=== PATIENT | female | born 1955 | race Caucasian/White ===

== ENCOUNTER 2017-09-20 04:55 | Outpatient (CLI) | payer BC | END 2017-09-20 23:59 | disposition home or self-care (01) | LOC: DIABETIC 04:55 | PROVIDERS: ATTEND Family Medicine | DX: E11.9 Type 2 diabetes mellitus without complications (principal) | CPT/HCPCS: G0108 ==

== ENCOUNTER 2017-12-20 05:00 | Outpatient (CLI) | payer BC | END 2017-12-20 23:59 | disposition home or self-care (01) | LOC: DIABETIC 05:00 | PROVIDERS: ATTEND Family Medicine | DX: E11.65 Type 2 diabetes mellitus with hyperglycemia (principal) | CPT/HCPCS: G0108 ==

== ENCOUNTER 2018-04-21 04:27 | Outpatient (CLI) | payer BC | END 2018-04-21 23:59 | disposition home or self-care (01) | LOC: DIABETIC 04:27 | PROVIDERS: ATTEND Family Medicine | DX: E11.65 Type 2 diabetes mellitus with hyperglycemia (principal); Z79.84 Long term (current) use of oral hypoglycemic drugs | CPT/HCPCS: G0108 ==

== ENCOUNTER 2018-08-23 00:48 | Outpatient (CLI) | payer BC | END 2018-08-23 23:59 | disposition home or self-care (01) | LOC: DIABETIC 00:48 | PROVIDERS: ATTEND Family Medicine | DX: E11.65 Type 2 diabetes mellitus with hyperglycemia (principal); Z79.84 Long term (current) use of oral hypoglycemic drugs | CPT/HCPCS: G0108 ==

== ENCOUNTER 2018-11-20 11:12 | Inpatient (IN) | payer BC ==
[~2018-11-20] VITALS: Ht 167.6 cm; Wt 62.7 kg
[2018-11-20 12:02] LABS: BASOPHILS % (AUTO) 0.7 % (0-1); EOSINOPHILS # (AUTO) 0.3 X10'3 (0-0.9); EOSINOPHILS % (AUTO) 4.9 % (0-6); HEMATOCRIT 41.2 % (35.0-45.0); HEMOGLOBIN 13.8 g/dl (12.0-16.0); LYMPHOCYTES # (AUTO) 1.5 X10'3 (1.1-4.8); LYMPHOCYTES % (AUTO) 26.1 % (21-51); MEAN CORPUSCULAR HEMOGLOBIN 29.3 PG (27.0-31.0); MEAN CORPUSCULAR HGB CONC 33.6 g/dL (33.0-36.5); MEAN CORPUSCULAR VOLUME 87.4 FL (78-98); MEAN PLATELET VOLUME 8.3 FL (7.4-10.4); MONOCYTES # (AUTO) 0.6 X10'3 (0-0.9); MONOCYTES % (AUTO) 9.8 % (2-12); NEUTROPHILS # (AUTO) 3.5 X10'3 (1.8-7.7); NEUTROPHILS % (AUTO) 58.5 % (42-75); PLATELET COUNT 320 X10'3 (140-440); RED BLOOD COUNT 4.72 X10'6 (4.20-5.60); RED CELL DISTRIBUTION WIDTH 13.3 % (11.5-14.5); WHITE BLOOD COUNT 5.9 X10'3 (4.5-11.0)
[2018-11-20 12:15] LABS: ALANINE AMINOTRANSFERASE 28 U/L (12-78); ALBUMIN 3.4 G/DL (3.4-5.0); ALKALINE PHOSPHATASE 93 IU/L (46-116); ANION GAP 5 (8-16); ASPARTATE AMINO TRANSFERASE 18 U/L (10-37); BILIRUBIN,TOTAL 0.3 MG/DL (0.1-1.0); BLOOD UREA NITROGEN 21 MG/DL (7-18); BUN/CREATININE RATIO 26.6 (6.6-38.0); CALCIUM 9.5 MG/DL (8.5-10.1); CHLORIDE 105 MMOL/L (99-107); CREATININE 0.79 MG/DL (0.40-0.90); GLUCOSE 118 MG/DL (70-104); POTASSIUM 3.2 MMOL/L (3.5-5.1); SODIUM 141 MMOL/L (135-145); TOTAL CARBON DIOXIDE 31.5 MMOL/L (24-32); TOTAL PROTEIN 6.9 G/DL (6.4-8.2); eGFR 73 ML/MIN
--- NOTE | 2018-11-20 12:15 | NUR ---
DR KLEIN MADE AWARE OF PATIENT'S STATUS, HR 150 AFIB WITH NO PREVIOUS CARDIAC HX. Addendum: 11/20/18 at 1544 by JUANITA UNSTABLE AFIB, HR 130'S-150'S.
[2018-11-20 12:19] LABS: PARTIAL THROMBOPLASTIN TIME 25 SECONDS (22-32)
[2018-11-20] MEDS ORDERED: diltiazem-D5W 125mg/125ml 125 ML IV PRN (12:26)
[2018-11-20] MEDS ORDERED: diltiazem 5mg/ml 5ml inj. IV ONE (12:30)
[2018-11-20] MEDS ORDERED: ATOR20TA66 PO (12:53)
[2018-11-20] MEDS ORDERED: ADAL40PE SUBCUT (12:53)
[2018-11-20] MEDS ORDERED: PRED1TAB PO (12:58)
[2018-11-20] MEDS ORDERED: LEVO100T PO (12:58)
[2018-11-20] MEDS ORDERED: MONT10TA24 PO (12:58)
[2018-11-20] MEDS ORDERED: GABA-532 PO ×2 (12:58)
[2018-11-20] MEDS ORDERED: FLO44IN IH (12:58)
[2018-11-20] MEDS ORDERED: METF-436 PO (13:00)
[2018-11-20] MEDS ORDERED: CETI-102 PO (13:00)
[2018-11-20] MEDS ORDERED: OMEP20CA10 PO (13:00)
[2018-11-20 13:41] LABS: MAGNESIUM 1.5 MG/DL (1.5-2.4)
--- NOTE | 2018-11-20 13:54 | NUR ---
OKAY TO EAT PER DR KLEIN. [facility]
[2018-11-20] MEDS ORDERED: mag hydrox/Alum hydrox/simeth 30ml oral suspension PO PRN (14:25)
[2018-11-20] MEDS ORDERED: insulin Lispro (HumaLOG) vial - multi-dose SQ SCH (14:25)
[2018-11-20] MEDS ORDERED: ondansetron/PF 4mg/2ml inj IV PRN (14:25)
[2018-11-20] MEDS ORDERED: magnesium 4gm in 100ml NS 100 ML IV PRN (14:25)
[2018-11-20] MEDS ORDERED: dextrose ORAL solution 15 GM/59 ML bottle PO PRN ×2 (14:25)
[2018-11-20] MEDS ORDERED: diphenhydrAMINE 25mg capsule PO PRN (14:25)
[2018-11-20] MEDS ORDERED: potassium Cl 20 mEq SR tablet PO PRN (14:25)
[2018-11-20] MEDS ORDERED: glucagon, human recombinant 1mg kit SUBCUT PRN (14:25)
[2018-11-20] MEDS ORDERED: bisacodyl 10mg suppository rectal RC PRN (14:25)
[2018-11-20] MEDS ORDERED: morphine 2 MG/ML inj. syringe IV PRN (14:25)
[2018-11-20] MEDS ORDERED: HYDROcodone/acetaminophen 5mg/325mg tablet PO PRN (14:25)
[2018-11-20] MEDS ORDERED: magnesium 2GM in 50ml NS 50 ML IV PRN (14:25)
[2018-11-20] MEDS: K and/or MAG REPLACEMENT MC SCH (14:25)
[2018-11-20] MEDS ORDERED: potassium Cl 40MEQ/NS 500ml 500 ML IV PRN ×2 (14:25)
[2018-11-20] MEDS ORDERED: magnesium hydroxide 30ml (MOM) UD suspension PO PRN (14:25)
[2018-11-20] MEDS ORDERED: dextrose 50%-water 50ml dispensing syringe IV PRN ×2 (14:25)
[2018-11-20] MEDS ORDERED: acetaminophen 325mg tablet PO PRN ×2 (14:25)
[2018-11-20] MEDS ORDERED: MESSAGE TO PHARMACY PO ONE (14:25)
[2018-11-20] MEDS ORDERED: HYDROcodone/acetaminophen 10/325mg tab PO PRN (14:25)
[2018-11-20] MEDS ORDERED: magnesium Cl slow-release 64mg tablet PO PRN (14:25)
[2018-11-20] MEDS ORDERED: iohexol 350MG/ML 100ml bottle IV ONE (14:48)
[2018-11-20 15:06] LABS: CLARITY,URINE CLEAR (Clear); COLOR,URINE STRAW (Yellow); GLUCOSE, URINE NEGATIVE (Neg); KETONES,URINE NEGATIVE (Neg); LEUKOCYTE ESTERASE ,URINE NEGATIVE (Neg); NITRITES, URINE NEGATIVE (Neg); OCCULT BLOOD,URINE NEGATIVE (Neg); PH,URINE 6.5 (4.8-8.0); PROTEIN,URINE NEGATIVE (Neg); UROBILINOGEN,URINE 0.2 E.U/dL (0.2-1.0)
[2018-11-20 15:08] LABS: UA COLLECTION TYPE CLN CATCH MIDSTREAM
[2018-11-20 15:11] LABS: URINE AMPHETAMINE SCREEN NEGATIVE (Neg); URINE BARBITUATE SCREEN NEGATIVE (Neg); URINE BENZODIAZEPINES SCREEN NEGATIVE (Neg); URINE CANNABINOID SCREEN NEGATIVE (Neg); URINE COCAINE SCREEN NEGATIVE (Neg); URINE METHADONE SCREEN NEGATIVE (Neg); URINE OPIATE SCREEN NEGATIVE (Neg); URINE PHENCYCLIDINE SCREEN NEGATIVE (Neg)
[2018-11-20 15:36] LABS: HEMOGLOBIN A1C 5.9 % (4.5-6.2)
[2018-11-20] MEDS: potassium Cl 20 mEq SR tablet PO PRN ×2 (15:40→22:01)
--- NOTE | 2018-11-20 15:41 | NUR ---
DR KAUR AT BEDSIDE, HR 88, CONVERTED TO STABLE AFIB ON CARDIAC MONTIOR, BP 137/55, SPO2 100 % ON ROOM AIR, PAIN 0/10 ON PAIN SCALE.
[2018-11-20] MEDS: MESSAGE TO NURSING PO NR (15:49)
--- NOTE | 2018-11-20 16:52 | NUR ---
phone call to dr Stark at this time regarding Patient converting to SR. Per MD order new EKG and cardizem drip changed to 5 ml/hr and hold if SBP <100, or HR <60.
--- NOTE | 2018-11-20 19:20 | NUR ---
Patient in room PCU 3023B. I have received report from Margaret RN in ED and had the opportunity to ask questions and assume patient care. Patient on 5 mg Cardizem drip. Patient arrived to floor on gurney and ambulated to bed. On mobile 63 with VS q1hr per protocol. Patient is A&O x4. Will continue to monitor closely
[2018-11-20 20:00] VITALS: BP_SYST 121; BP_SYST 130; BP_DIAS 63; BP_DIAS 71; BP_DIAS 75; BP_DIAS 77
[2018-11-20] MEDS: budesonide 0.5mg/2ml UD nebule IH SCH (20:06)
[2018-11-20] MEDS ORDERED: insulin glargine (Lantus) pen - multi-dose SQ SCH (21:00)
[2018-11-20] MEDS ORDERED: gabapentin 300mg capsule PO SCH (21:00)
[2018-11-20] MEDS: apixaban 5mg tablet PO SCH (21:34)
[2018-11-20] MEDS: normal saline 1000ml 1,000 ML IV SCH (21:43)
[2018-11-20 23:00] VITALS: BP 130/75
[2018-11-21] MEDS: potassium Cl 20 mEq SR tablet PO PRN (02:27)
[2018-11-21 03:00] VITALS: BP 116/66
[2018-11-21 05:16] LABS: BASOPHILS # (AUTO) 0.1 X10'3 (0-0.2); BASOPHILS % (AUTO) 0.7 % (0-1); EOSINOPHILS # (AUTO) 0.3 X10'3 (0-0.9); EOSINOPHILS % (AUTO) 2.7 % (0-6); HEMATOCRIT 38.1 % (35.0-45.0); HEMOGLOBIN 13.1 g/dl (12.0-16.0); LYMPHOCYTES # (AUTO) 1.9 X10'3 (1.1-4.8); LYMPHOCYTES % (AUTO) 20.4 % (21-51); MEAN CORPUSCULAR HEMOGLOBIN 29.9 PG (27.0-31.0); MEAN CORPUSCULAR HGB CONC 34.5 g/dL (33.0-36.5); MEAN CORPUSCULAR VOLUME 86.9 FL (78-98); MEAN PLATELET VOLUME 8.5 FL (7.4-10.4); MONOCYTES % (AUTO) 10.6 % (2-12); NEUTROPHILS % (AUTO) 65.6 % (42-75); PLATELET COUNT 298 X10'3 (140-440); RED BLOOD COUNT 4.38 X10'6 (4.20-5.60); RED CELL DISTRIBUTION WIDTH 13.4 % (11.5-14.5); WHITE BLOOD COUNT 9.2 X10'3 (4.5-11.0)
[2018-11-21] MEDS: normal saline 1000ml 1,000 ML IV SCH ×2 (05:22→10:22)
[2018-11-21 05:29] LABS: ALANINE AMINOTRANSFERASE 23 U/L (12-78); ALBUMIN 3.1 G/DL (3.4-5.0); ALBUMIN/GLOBULIN RATIO 0.9 (1.1-1.5); ALKALINE PHOSPHATASE 80 IU/L (46-116); ANION GAP 5 (8-16); ASPARTATE AMINO TRANSFERASE 11 U/L (10-37); BILIRUBIN,TOTAL 0.3 MG/DL (0.1-1.0); BLOOD UREA NITROGEN 21 MG/DL (7-18); BUN/CREATININE RATIO 30.9 (6.6-38.0); CALCIUM 9.5 MG/DL (8.5-10.1); CHLORIDE 107 MMOL/L (99-107); CHOL/HDL RATIO 2.9 (0.00-4.99); CHOLESTEROL 158 MG/DL (0-200); CREATININE 0.68 MG/DL (0.40-0.90); GLUCOSE 105 MG/DL (70-104); HDL CHOLESTEROL 54 MG/DL (35-60); LDL CHOLESTEROL 95 MG/DL (50-100); MAGNESIUM 1.7 MG/DL (1.5-2.4); PHOSPHORUS 4.2 MG/DL (2.3-4.5); POTASSIUM 4.1 MMOL/L (3.5-5.1); SODIUM 140 MMOL/L (135-145); TOTAL CARBON DIOXIDE 27.6 MMOL/L (24-32); TOTAL PROTEIN 6.4 G/DL (6.4-8.2); TRIGLYCERIDES 76 MG/DL (20-135); eGFR 87 ML/MIN
[2018-11-21 06:00] VITALS: BP 111/69
--- NOTE | 2018-11-21 06:12 | NUR ---
[place] documentation: I have reviewed and agree with all interventions, assessments performed and documented by Binu VERDIN. [place] Medication Administration: For this medication-pass time frame, all medication were reviewed, dispensed, administered and documented per hospital policy by Binu VERDIN.
--- NOTE | 2018-11-21 06:15 | NUR ---
Problems reprioritized. Patient report given, questions answered & plan of care reviewed with LAMBERT Manzo and LAMBERT Greer.
--- NOTE | 2018-11-21 06:20 | NUR ---
Patient in room PCU 3023. I have received report from Saadia little and had the opportunity to ask questions and assume patient care.
--- NOTE | 2018-11-21 07:17 | NUR ---
patient has a migraine paged Dr. Stark "RE: Dandre Cyr in 1039I. pt c/o bad migraine, says she takes 100mg of Imitrex for this. refusing [place], can we place that order? call me chip. thank you, Anais [facility] [phone]"
[2018-11-21] MEDS ORDERED: SUMAtriptan 25 MG tablet PO PRN (07:20)
[2018-11-21] MEDS: apixaban 5mg tablet PO SCH (07:53)
[2018-11-21] MEDS: gabapentin 300mg capsule PO SCH ×2 (07:53→12:00)
[2018-11-21] MEDS ORDERED: atorvastatin 20mg tablet PO SCH (08:00)
[2018-11-21] MEDS ORDERED: montelukast 10mg tablet PO SCH (08:00)
[2018-11-21] MEDS ORDERED: pantoprazole 40mg Tablet.DR PO SCH (08:00)
[2018-11-21] MEDS ORDERED: predniSONE 1 mg tablet PO SCH (08:00)
[2018-11-21] MEDS: K and/or MAG REPLACEMENT MC SCH (08:00)
--- NOTE | 2018-11-21 08:21 | NUR ---
Asked MD about Cardizem Drip Paged Dr. Stark- "Re: Dandre Cyr in 7408B. Patient is in Sinus Rhythm, can we DC Cardizem drip/start PO medication? also has orders for NS @100 pt tolerating PO. Thank you, Anais [facility] [phone] "
[2018-11-21] MEDS: budesonide 0.5mg/2ml UD nebule IH SCH (08:29)
[2018-11-21] MEDS ORDERED: diltiazem CD 180mg cap (once-daily) PO SCH (08:50)
[2018-11-21] MEDS: MESSAGE TO NURSING PO NR (09:57)
[2018-11-21 11:00] VITALS: BP 117/64
[2018-11-21] MEDS ORDERED: DILT180C66 PO (13:27)
[2018-11-21] MEDS ORDERED: LEVO25TA7 PO (13:27)
[2018-11-21] MEDS ORDERED: APIX5TAB3 PO (13:27)
--- NOTE | 2018-11-21 16:12 | NUR ---
PROVIDED PATIENT WITH DISCHARGE INSTRUCTIONS WELL NEW PRESCRIPTION INFORMATION. PATIENT AWAITING DELIVERY OF NEW PRESCRIPTIONS FROM [facility] BEDSIDE. IV REMOVED, CATHETER INTACT, WITH MINIMAL BLEEDING. CLEAN GAUZE APPLIED AND SECURED WITH TAPE. PATIENT IN SINUS RHYTHM, VITAL SIGNS STABLE. PATIENT VERBALIZES UNDERSTANDING OF IMPORTANCE OF FOLLOWING UP WITH PRIMARY CARE DOCTOR WELL RAILROAD CONSTRUCTION DIRECTOR. PATIENT RECOMMENDED TO REPEAT CHEST CT. DISCONNECTED FROM BEDSIDE MONITOR. PATIENT AWAITING RIDE FROM FAMILY TO GO HOME VIA PRIVATE VEHICLE.
[2018-11-23] MEDS ORDERED: ADALIMUMAB 40 MG/0.8 ML SUBCUT SCH (08:00)
== END 2018-11-21 17:26 | disposition home or self-care (01) | DRG 310 ==
LOC: ER 11:12 → PCU 3S 14:26 → CMPBEDREQ 20:38
PROVIDERS: ADMIT Family Medicine; ATTEND Family Medicine
DX: I48.91 Unspecified atrial fibrillation (principal); E11.9 Type 2 diabetes mellitus without complications; E03.9 Hypothyroidism, unspecified; E78.5 Hyperlipidemia, unspecified; E87.6 Hypokalemia; J30.2 Other seasonal allergic rhinitis; E04.9 Nontoxic goiter, unspecified; M06.9 Rheumatoid arthritis, unspecified; K21.9 Gastro-esophageal reflux disease without esophagitis; Z79.01 Long term (current) use of anticoagulants; Z88.0 Allergy status to penicillin; Z88.8 Allergy status to other drugs, medicaments and biological substances; Z79.84 Long term (current) use of oral hypoglycemic drugs; Z79.890 Hormone replacement therapy; Z79.899 Other long term (current) drug therapy; Z82.49 Family history of ischemic heart disease and other diseases of the circulatory system; Z85.3 Personal history of malignant neoplasm of breast
CPT/HCPCS: 36415; 71045; 71275; 80053; 80061; 80305; 81003; 82948; 83036; 83735; 84100; 84443; 84484; 85025; 85610; 85730; 87070; 93005; 93306; 94640; 94760; 96374; 99285; G0378; J1815; J3490; J7030; J7512; J7626; Q9967

== ENCOUNTER 2019-02-28 02:15 | Outpatient (CLI) | payer MEDICARE, BC ==
[~2019-02-28 02:15] MED LIST: ADAL40PE SUBCUT; APIX5TAB3 PO; ATOR20TA66 PO; CETI-102 PO; CYCL-1 PO; DILT180C66 PO; FLO44IN IH; GABA-532 PO; HYDR-4383 PO; LEVO25TA7 PO; METF-436 PO; MONT10TA24 PO; OMEP20CA11 PO; PRED1TAB PO
== END 2019-02-28 23:59 | disposition home or self-care (01) ==
LOC: DIABETIC 02:15
PROVIDERS: ATTEND Family Medicine
DX: E11.65 Type 2 diabetes mellitus with hyperglycemia (principal); I10 Essential (primary) hypertension; J45.909 Unspecified asthma, uncomplicated; Z79.84 Long term (current) use of oral hypoglycemic drugs; Z79.899 Other long term (current) drug therapy
CPT/HCPCS: G0108

== ENCOUNTER 2019-03-06 16:20 | Emergency (ER) | payer MEDICARE, BC ==
[~2019-03-06] VITALS: Ht 167.6 cm; Wt 65.9 kg
--- NOTE | 2019-03-06 17:36 | NUR ---
back from ct via [facility] in stable condition. accompanied by lio and rn tavo
[2019-03-06] MEDS ORDERED: acetaminophen 325mg tablet PO ONE (17:45)
[2019-03-06 18:00] LABS: BASOPHILS # (AUTO) 0.1 X10'3 (0-0.2); BASOPHILS % (AUTO) 0.7 % (0-1); EOSINOPHILS # (AUTO) 0.3 X10'3 (0-0.9); EOSINOPHILS % (AUTO) 2.9 % (0-6); HEMATOCRIT 41.5 % (35.0-45.0); LYMPHOCYTES # (AUTO) 1.5 X10'3 (1.1-4.8); LYMPHOCYTES % (AUTO) 15.6 % (21-51); MEAN CORPUSCULAR HGB CONC 33.7 g/dL (33.0-36.5); MONOCYTES # (AUTO) 0.7 X10'3 (0-0.9); MONOCYTES % (AUTO) 7.1 % (2-12); NEUTROPHILS # (AUTO) 7.1 X10'3 (1.8-7.7); NEUTROPHILS % (AUTO) 73.7 % (42-75); PLATELET COUNT 305 X10'3 (140-440); RED BLOOD COUNT 4.67 X10'6 (4.20-5.60); RED CELL DISTRIBUTION WIDTH 15.4 % (11.5-14.5); WHITE BLOOD COUNT 9.7 X10'3 (4.5-11.0)
[2019-03-06] MEDS ORDERED: ondansetron 4mg rapidly disintigrating tab PO ONE (18:05)
[2019-03-06 18:18] LABS: ALANINE AMINOTRANSFERASE 29 U/L (12-78); ALBUMIN 3.5 G/DL (3.4-5.0); ALBUMIN/GLOBULIN RATIO 0.9 (1.1-1.5); ALKALINE PHOSPHATASE 114 IU/L (46-116); ANION GAP 6 (8-16); ASPARTATE AMINO TRANSFERASE 14 U/L (10-37); BILIRUBIN,TOTAL 0.3 MG/DL (0.1-1.0); BLOOD UREA NITROGEN 15 MG/DL (7-18); BUN/CREATININE RATIO 20.8 (6.6-38.0); CALCIUM 8.7 MG/DL (8.5-10.1); CHLORIDE 107 MMOL/L (99-107); CREATININE 0.72 MG/DL (0.40-0.90); GLUCOSE 100 MG/DL (70-104); SODIUM 143 MMOL/L (135-145); TOTAL CARBON DIOXIDE 29.8 MMOL/L (24-32); TOTAL PROTEIN 7.4 G/DL (6.4-8.2); eGFR 81 ML/MIN
[2019-03-06 18:50] LABS: COLOR,URINE YELLOW (Yellow); GLUCOSE, URINE NEGATIVE (Neg); KETONES,URINE NEGATIVE (Neg); LEUKOCYTE ESTERASE ,URINE NEGATIVE (Neg); NITRITES, URINE NEGATIVE (Neg); OCCULT BLOOD,URINE NEGATIVE (Neg); PH,URINE 6.5 (4.8-8.0); PROTEIN,URINE NEGATIVE (Neg); UROBILINOGEN,URINE 0.2 E.U/dL (0.2-1.0)
[2019-03-06 18:54] LABS: CLARITY,URINE CLEAR (Clear); UA COLLECTION TYPE STRAIGHT CATH
[2019-03-06 19:14] VITALS: BP 116/68
== END 2019-03-06 19:16 | disposition home or self-care (01) ==
LOC: ER 16:20
DX: M25.512 Pain in left shoulder (principal); I48.91 Unspecified atrial fibrillation; K21.9 Gastro-esophageal reflux disease without esophagitis; E11.9 Type 2 diabetes mellitus without complications; E03.9 Hypothyroidism, unspecified; M19.90 Unspecified osteoarthritis, unspecified site; Z88.0 Allergy status to penicillin; Z88.8 Allergy status to other drugs, medicaments and biological substances; Z79.899 Other long term (current) drug therapy; Z85.3 Personal history of malignant neoplasm of breast; W18.39XA Other fall on same level, initial encounter; Y93.89 Activity, other specified; Y92.89 Other specified places as the place of occurrence of the external cause; Y99.8 Other external cause status
CPT/HCPCS: 36415; 70450; 72125; 73030; 80053; 81003; 82948; 85025; 85610; 93005; 99284; J2405; P9612

== ENCOUNTER 2019-06-06 10:43 | Outpatient (CLI) | payer MEDICARE, BC | END 2019-06-06 23:59 | disposition home or self-care (01) | LOC: DIABETIC 10:43 | PROVIDERS: ATTEND Family Medicine | DX: E11.65 Type 2 diabetes mellitus with hyperglycemia (principal); I10 Essential (primary) hypertension; J45.909 Unspecified asthma, uncomplicated; Z79.84 Long term (current) use of oral hypoglycemic drugs; Z79.899 Other long term (current) drug therapy | CPT/HCPCS: G0108 ==

== ENCOUNTER 2019-09-05 01:48 | Outpatient (CLI) | payer MEDICARE, BC ==
[~2019-09-05 01:48] MED LIST changes: -CETI-102 PO; +CETI-90 PO; -MONT10TA24 PO; +MONT10TA26 PO; -OMEP20CA11 PO; +OMEP20CA15 PO
== END 2019-09-05 23:59 | disposition home or self-care (01) ==
LOC: DIABETIC 01:48
PROVIDERS: ATTEND Family Medicine
DX: E11.65 Type 2 diabetes mellitus with hyperglycemia (principal); Z79.84 Long term (current) use of oral hypoglycemic drugs
CPT/HCPCS: G0108

== ENCOUNTER 2020-03-28 18:13 | Inpatient (IN) | payer MEDICARE, BC ==
[~2020-03-28] VITALS: Ht 167.6 cm; Wt 65.0 kg
[2020-03-28 19:22] LABS: BASOPHILS # (AUTO) 0.1 X10'3 (0-0.2); BASOPHILS % (AUTO) 0.7 % (0-1); EOSINOPHILS # (AUTO) 0.2 X10'3 (0-0.9); EOSINOPHILS % (AUTO) 3.1 % (0-6); HEMATOCRIT 38.4 % (35.0-45.0); HEMOGLOBIN 12.6 g/dl (12.0-16.0); LYMPHOCYTES # (AUTO) 1.7 X10'3 (1.1-4.8); LYMPHOCYTES % (AUTO) 21.4 % (21-51); MEAN CORPUSCULAR HEMOGLOBIN 27.7 PG (27.0-31.0); MEAN CORPUSCULAR HGB CONC 32.8 g/dL (33.0-36.5); MEAN CORPUSCULAR VOLUME 84.4 FL (78-98); MEAN PLATELET VOLUME 8.7 FL (7.4-10.4); MONOCYTES # (AUTO) 0.6 X10'3 (0-0.9); MONOCYTES % (AUTO) 7.4 % (2-12); NEUTROPHILS # (AUTO) 5.5 X10'3 (1.8-7.7); NEUTROPHILS % (AUTO) 67.4 % (42-75); PLATELET COUNT 367 X10'3 (140-440); RED BLOOD COUNT 4.54 X10'6 (4.20-5.60); RED CELL DISTRIBUTION WIDTH 15.5 % (11.5-14.5); WHITE BLOOD COUNT 8.2 X10'3 (4.5-11.0)
[2020-03-28 19:25] LABS: ALANINE AMINOTRANSFERASE 32 U/L (12-78); ALBUMIN 3.8 G/DL (3.4-5.0); ALBUMIN/GLOBULIN RATIO 0.9 (1.1-1.5); ALKALINE PHOSPHATASE 104 IU/L (46-116); ANION GAP 3 (8-16); ASPARTATE AMINO TRANSFERASE 23 U/L (10-37); BILIRUBIN,TOTAL 0.3 MG/DL (0.1-1.0); BLOOD UREA NITROGEN 15 MG/DL (7-18); BUN/CREATININE RATIO 19.5 (6.6-38.0); CHLORIDE 105 MMOL/L (99-107); CREATININE 0.77 MG/DL (0.40-0.90); GLUCOSE 110 MG/DL (70-104); POTASSIUM 3.5 MMOL/L (3.5-5.1); SODIUM 140 MMOL/L (135-145); TOTAL CARBON DIOXIDE 31.7 MMOL/L (24-32); eGFR 75 ML/MIN
[2020-03-28] MEDS ORDERED: mag hydrox/Alum hydrox/simeth 30ml oral suspension PO PRN (20:35)
[2020-03-28] MEDS ORDERED: potassium Cl 20 mEq SR tablet PO PRN ×2 (20:35)
[2020-03-28] MEDS ORDERED: magnesium hydroxide 30ml (MOM) UD suspension PO PRN (20:35)
[2020-03-28] MEDS ORDERED: ondansetron/PF 4mg/2ml inj IV PRN (20:35)
[2020-03-28] MEDS ORDERED: acetaminophen 325mg tablet PO PRN (20:35)
[2020-03-28] MEDS ORDERED: potassium CL 10mEq/100ml bag 100 ML IV PRN ×2 (20:35)
[2020-03-28] MEDS ORDERED: SOTA80TA73 PO (20:53)
--- NOTE | 2020-03-28 21:50 | NUR ---
Patient in room PCU 3015. I have received report from LAMBERT [place] and had the opportunity to ask questions and assume patient care. Patient arrived on unit, ambulatory, vital signs stable, mrsa swab complete, 2 RN skin check complete.
[2020-03-28 22:12] VITALS: BP 149/85
[2020-03-28] MEDS ORDERED: apixaban 5mg tablet PO STA (22:42)
[2020-03-28] MEDS ORDERED: sotalol 80mg tablet PO STA (22:42)
[2020-03-29 03:12] VITALS: BP 116/65
[2020-03-29 06:00] VITALS: BP 125/68
--- NOTE | 2020-03-29 06:12 | NUR ---
Problems reprioritized. Patient report given, questions answered & plan of care reviewed with LAMBERT Higginbotham.
--- NOTE | 2020-03-29 06:30 | NUR ---
Patient in room PCU 3015. I have received report from Yudy VERDIN and had the opportunity to ask questions and assume patient care.
[2020-03-29] MEDS ORDERED: pantoprazole 40mg Tablet.DR PO SCH (07:30)
[2020-03-29] MEDS ORDERED: metFORMIN 500mg tablet PO SCH (07:30)
[2020-03-29] MEDS ORDERED: predniSONE 1 mg tablet PO SCH (08:00)
[2020-03-29] MEDS ORDERED: cetirizine 10mg tablet PO SCH (08:00)
[2020-03-29] MEDS ORDERED: apixaban 5mg tablet PO SCH (08:00)
[2020-03-29] MEDS ORDERED: sotalol 80mg tablet PO SCH (08:00)
[2020-03-29] MEDS ORDERED: K and/or MAG REPLACEMENT MC SCH (08:00)
[2020-03-29] MEDS ORDERED: budesonide 0.5mg/2ml UD nebule IH SCH (08:00)
[2020-03-29] MEDS ORDERED: atorvastatin 20mg tablet PO SCH (08:00)
[2020-03-29] MEDS ORDERED: gabapentin 300mg capsule PO SCH (08:00)
[2020-03-29] MEDS ORDERED: montelukast 10mg tablet PO SCH (08:00)
[2020-03-29 08:07] LABS: BASOPHILS # (AUTO) 0.1 X10'3 (0-0.2); BASOPHILS % (AUTO) 0.9 % (0-1); EOSINOPHILS # (AUTO) 0.3 X10'3 (0-0.9); EOSINOPHILS % (AUTO) 3.4 % (0-6); HEMATOCRIT 38.5 % (35.0-45.0); HEMOGLOBIN 12.6 g/dl (12.0-16.0); LYMPHOCYTES # (AUTO) 2.7 X10'3 (1.1-4.8); LYMPHOCYTES % (AUTO) 28.5 % (21-51); MEAN CORPUSCULAR HEMOGLOBIN 27.6 PG (27.0-31.0); MEAN CORPUSCULAR HGB CONC 32.7 g/dL (33.0-36.5); MEAN CORPUSCULAR VOLUME 84.5 FL (78-98); MEAN PLATELET VOLUME 8.9 FL (7.4-10.4); MONOCYTES # (AUTO) 0.7 X10'3 (0-0.9); NEUTROPHILS # (AUTO) 5.7 X10'3 (1.8-7.7); NEUTROPHILS % (AUTO) 60.2 % (42-75); PLATELET COUNT 325 X10'3 (140-440); RED BLOOD COUNT 4.56 X10'6 (4.20-5.60); RED CELL DISTRIBUTION WIDTH 15.6 % (11.5-14.5); WHITE BLOOD COUNT 9.5 X10'3 (4.5-11.0)
[2020-03-29 08:22] LABS: ALANINE AMINOTRANSFERASE 32 U/L (12-78); ALBUMIN 3.3 G/DL (3.4-5.0); ALBUMIN/GLOBULIN RATIO 0.9 (1.1-1.5); ALKALINE PHOSPHATASE 88 IU/L (46-116); ANION GAP 6 (8-16); ASPARTATE AMINO TRANSFERASE 24 U/L (10-37); BILIRUBIN,TOTAL 0.4 MG/DL (0.1-1.0); BLOOD UREA NITROGEN 16 MG/DL (7-18); BUN/CREATININE RATIO 21.3 (6.6-38.0); CALCIUM 9.2 MG/DL (8.5-10.1); CHLORIDE 105 MMOL/L (99-107); CREATININE 0.75 MG/DL (0.40-0.90); GLUCOSE 98 MG/DL (70-104); POTASSIUM 3.5 MMOL/L (3.5-5.1); SODIUM 141 MMOL/L (135-145); TOTAL CARBON DIOXIDE 30.3 MMOL/L (24-32); TOTAL PROTEIN 7.1 G/DL (6.4-8.2); eGFR 77 ML/MIN
--- NOTE | 2020-03-29 11:30 | NUR ---
Discharge orders given. Pt has remained stable. VSS and no CP. All belongings accounted for. Discharge instructions given and pt stated understanding. Pt taken in wheelchair to private vehicle driven by family.
--- NOTE | 2020-03-29 14:46 | NUR ---
1120 PT's IV d/emily and no s/s of complications noted.
--- NOTE | 2020-04-02 14:59 | NUR ---
Case Management DC follow up: s/p: CP Pt Reports: "doing better, still some lightheadedness sitting to standing" pt agrees to stay well-hydrated,orthostatic hypotension protocol education as a precaution. Denies: Acute/continuous CP, emergent SOB, resp distress, orthopnea, dyspnea, N/V, weakness, vertigo, syncope episodes, MCGILL, blurry vision, s/s stroke/FAST, dysphagia, bladder pain, dysuria, polyuria, hematuria, retention, abd pain/distention, hematochezia, melena, fever, chills. Verbalizes understanding of new Rx, why prescribed; continues/resumes current Rx as ordered, denies ase r/t polypharmacy. Verbalizes compliance w/aftercare. verbalizes understanding of s/s that warrant 9-11/ER visit for further evaluation. Pt acknowledges need to schedule/confirm/keep follow up appt w/PCP/Chelita Santos, CY[facility]; Wayne/scheduled, RA Dr John, scheduled as needed. awaiting opening for particular marketing analytics lead Doctor in [place] who specializes in cardiac ablations. Pt has already addressed the [place] irregular nodules. Needs met, questions/concerns addressed at DC; No further questions/concerns r/t recent hospital stay and/or DC status at this time.
== END 2020-03-29 11:20 | disposition home or self-care (01) | DRG 313 ==
LOC: ER 18:13 → ED HOLD 20:34 → PCU 3S 22:00
PROVIDERS: ADMIT Internal Medicine; ATTEND Family Medicine
DX: R07.89 Other chest pain (principal); E03.9 Hypothyroidism, unspecified; E11.9 Type 2 diabetes mellitus without complications; E78.00 Pure hypercholesterolemia, unspecified; E78.5 Hyperlipidemia, unspecified; I10 Essential (primary) hypertension; M06.9 Rheumatoid arthritis, unspecified; I48.91 Unspecified atrial fibrillation; K21.9 Gastro-esophageal reflux disease without esophagitis; Z85.3 Personal history of malignant neoplasm of breast; Z88.0 Allergy status to penicillin; Z88.8 Allergy status to other drugs, medicaments and biological substances; Z79.899 Other long term (current) drug therapy
CPT/HCPCS: 36415; 71045; 80053; 82948; 83880; 84484; 85025; 87081; 93005; 93306; 94640; 94760; 99285; G0378; J7512; J7626

== ENCOUNTER 2021-12-31 19:36 | Emergency (ER) | payer MEDICARE, BC ==
[~2021-12-31] VITALS: Ht 167.6 cm; Wt 59.1 kg
[~2021-12-31 19:36] MED LIST changes: -CYCL-1 PO; -DILT180C66 PO; -HYDR-4383 PO; -LEVO25TA7 PO; +MONT-40 PO; -MONT10TA26 PO; +SOTA80TA73 PO
[2021-12-31 19:38] VITALS: BP 130/84
== END 2021-12-31 22:05 | disposition home or self-care (01) ==
LOC: ER 19:37
DX: S76.211A Strain of adductor muscle, fascia and tendon of right thigh, initial encounter (principal); R10.31 Right lower quadrant pain; R26.89 Other abnormalities of gait and mobility; R42 Dizziness and giddiness; I48.91 Unspecified atrial fibrillation; E78.00 Pure hypercholesterolemia, unspecified; K21.9 Gastro-esophageal reflux disease without esophagitis; E11.9 Type 2 diabetes mellitus without complications; E03.9 Hypothyroidism, unspecified; M19.90 Unspecified osteoarthritis, unspecified site; Z87.440 Personal history of urinary (tract) infections; Z85.3 Personal history of malignant neoplasm of breast; Z88.0 Allergy status to penicillin; Z88.8 Allergy status to other drugs, medicaments and biological substances; Z79.899 Other long term (current) drug therapy; X50.1XXA Overexertion from prolonged static or awkward postures, initial encounter; Y93.89 Activity, other specified; Y92.89 Other specified places as the place of occurrence of the external cause; Y99.8 Other external cause status
CPT/HCPCS: 73502; 99283

== ENCOUNTER 2023-04-04 10:41 | Day surgery (SDC) | payer MEDICARE, BC ==
[2023-04-04] VITALS (13 sets, daily range): BP systolic 128–166; BP diastolic 77–90; PULSE 75–87; RESP 9–16; TEMP 98.4; O2SAT 98–100
[~2023-04-04] VITALS: Ht 167.6 cm; Wt 59.0 kg
[~2023-04-04 10:41] MED LIST changes: -ADAL40PE SUBCUT; +ATOR-2 PO; -ATOR20TA66 PO; +CALC600T62 PO; +CEVI30CA7 PO; +CHOL10005 PO; +CYAN500T71 PO; -FLO44IN IH; -GABA-532 PO; +LANTUS SQ; +LEFL10TA20 PO; +LEVO75TA7 PO; +LOSA25TA41 PO; -METF-436 PO; +METF-900 PO; +OLOP5DRO26 EACHEYE; +POTA-218 PO; +PRE5T PO; -PRED1TAB PO; -SOTA80TA73 PO; +VALA500T41 PO; +famotidine 20mg tablet PO ONE; +ringers solution, lacted 1,000 ML IV SCH; +tranexamic acid inj. 1,000 MG in normal saline IV soln 100ML IV ONE
[2023-04-04] MEDS ORDERED: cocaine 4% topical solution 4ml bottle ONE (11:26)
[2023-04-04] MEDS ORDERED: oxymetazoline 15 ML nasal spray NS ONE (11:27)
[2023-04-04] MEDS ORDERED: epiNEPHrine 1 mg/ml 30ml MDV ONE (11:27)
[2023-04-04] MEDS ORDERED: mupirocin 2% ointment 22GM ONE (11:27)
[2023-04-04] MEDS ORDERED: LIDOcaine 1% w/EPI 1:100,000 inj. MDV 50 ML VIAL ONE (11:27)
[2023-04-04] MEDS ORDERED: insulin regular, human 10 units/0.1 ml syringe SQ ONE (12:10)
[2023-04-04] MEDS: oxymetazoline 15 ML nasal spray NS PRN ×2 (12:24→14:07)
[2023-04-04] MEDS ORDERED: sevoflurane 250ml liquid IH ONE (12:51)
--- NOTE | 2023-04-04 12:55 | NUR ---
REPORT GIVEN TO MARYANN RN-OR NURSE. AWARE INSULIN GIVEN A 1230 AND PT WILL REQUIRE GLUCOSE RECHECK
[2023-04-04] MEDS ORDERED: midazolam 1 mg/ML 2ml injection ONE (12:56)
[2023-04-04] MEDS ORDERED: fentaNYL /PF 50mcg/ml 5ml ampule ONE (12:59)
[2023-04-04] MEDS ORDERED: propofol inj 20 ML IV ONE (13:11)
[2023-04-04] MEDS ORDERED: ondansetron/PF 4mg/2ml inj ONE (13:11)
[2023-04-04] MEDS ORDERED: dexamethasone sod phosphate 4mg/ml inj. ONE (13:11)
[2023-04-04] MEDS ORDERED: LIDOcaine 2% (20mg/ml) 5ml vial ONE (13:11)
[2023-04-04] MEDS ORDERED: levoFLOXACIN-Levaquin 500mg/D5 0 ML IV ONE (13:18)
[2023-04-04] MEDS ORDERED: levoFLOXACIN-Levaquin 750MG/D5 150 ML IV ONE (13:25)
[2023-04-04] MEDS ORDERED: insulin regular, human U-100 3ml vial - multi-dose ONE (13:43)
--- NOTE | 2023-04-04 14:56 | NUR ---
Received from OR via [facility] [place] TO RR 6, accompanied by Anesthesiologist DR JOHNSON and report given by Anesthesiolgist. PT PRESENTS WITH PIV 20G RIGHT FOREARM, LR RUNINNG AT 100MLS/HR, SP02 99% 6L MASK, LR RUNIING AT 100MLS/HR, NASAL PACKING CDI, VSS. Addendum: 04/04/23 at 1508 by Ivett Murray RN, RN Amended: Links added.
[2023-04-04] MEDS ORDERED: hydrALAZINE 20mg/ml inj. IV PRN (15:05)
[2023-04-04] MEDS ORDERED: proCHLORperazine 10 MG/2 ml inj IV PRN (15:05)
[2023-04-04] MEDS ORDERED: labetalol 20mg/4ml (5mg/ml) syringe IV PRN (15:05)
[2023-04-04] MEDS ORDERED: acetaminophen 1,000mg/100ml IV 100 ML IV PRN (15:05)
[2023-04-04] MEDS ORDERED: ringers solution, lacted 1,000 ML IV SCH (15:05)
[2023-04-04] MEDS ORDERED: morphine 4 MG/ML inj SYRINge IV PRN (15:05)
[2023-04-04] MEDS ORDERED: morphine 2 MG/ML inj. syringe IV PRN (15:05)
[2023-04-04] MEDS ORDERED: ondansetron/PF 4mg/2ml inj IV PRN (15:05)
[2023-04-04] MEDS ORDERED: meperidine/PF 25mg/ml syringe IV PRN ×3 (15:05)
[2023-04-04] MEDS ORDERED: salt irrigation nasal spray 45 ML SPRAY NS PRN (15:10)
--- NOTE | 2023-04-04 15:30 | NUR ---
BILATERAL NASAL PACKING REMOVED, NO DRAINAGE NOTED AT THIS TIME. Addendum: 04/04/23 at 1539 by Ivett Murray RN, RN Amended: Links added.
--- NOTE | 2023-04-04 16:56 | NUR ---
PT HAS MET D/C CRITERIA. IV D/C'D. VSS. PT SENT HOME WITH NASAL LAVAGE KIT, AFRIN AND OACAN SPRAY, EXTRA GAUZE AMD MOUSTACHE DRESSING. I HAVE REVIEWED D/C INSTRUCTIONS WITH PATIENT AND SHE HAS VERBALIZED UNDERSTANDING OF INSTRUCTIONS. PATIENT D/C HOME WITH ALL BELONGINGS. PT TAKEN OUT OF HOSPITAL IN WHEELCHAIR TO WHERE BROTHER/RISSA WAS WAITING TO TAKE PT HOME. Addendum: 04/04/23 at 1708 by Ivett Murray RN, RN Amended: Links added.
== END 2023-04-04 16:56 | disposition home or self-care (01) ==
LOC: PRE-OP 10:41
PROVIDERS: ATTEND Otolaryngology
DX: J34.2 Deviated nasal septum (principal); J32.8 Other chronic sinusitis; J34.89 Other specified disorders of nose and nasal sinuses; I10 Essential (primary) hypertension; I48.91 Unspecified atrial fibrillation; G47.33 Obstructive sleep apnea (adult) (pediatric); I73.00 Raynaud's syndrome without gangrene; K21.9 Gastro-esophageal reflux disease without esophagitis; E03.9 Hypothyroidism, unspecified; J45.909 Unspecified asthma, uncomplicated; G90.50 Complex regional pain syndrome I, unspecified; E11.9 Type 2 diabetes mellitus without complications; M06.9 Rheumatoid arthritis, unspecified; G43.909 Migraine, unspecified, not intractable, without status migrainosus; Z86.16 Personal history of COVID-19; Z85.3 Personal history of malignant neoplasm of breast; Z88.0 Allergy status to penicillin; Z88.8 Allergy status to other drugs, medicaments and biological substances; Z98.890 Other specified postprocedural states; Z79.899 Other long term (current) drug therapy
CPT/HCPCS: 30520; 31259; 61782; 82948; 87070; 87075; 87102; A6402; C1726; J0131; J0171; J1100; J1815; J1956; J2250; J2405; J2704; J3010; J3490; J7030; J7050; J7120; Z7506; Z7508; Z7512; A4618; A6449; A7000

== ENCOUNTER → 2023-08-05 | Outpatient (CLI) | payer MEDICARE, BC ==
[~2023-08-05] MED LIST changes: -famotidine 20mg tablet PO ONE; -ringers solution, lacted 1,000 ML IV SCH; -tranexamic acid inj. 1,000 MG in normal saline IV soln 100ML IV ONE
[2023-08-05 14:33] LABS: BASOPHILS # (AUTO) 0.1 X10'3 (0-0.2); BASOPHILS % (AUTO) 0.9 % (0-1); EOSINOPHILS # (AUTO) 0.1 X10'3 (0-0.9); EOSINOPHILS % (AUTO) 0.7 % (0-6); HEMATOCRIT 38.3 % (35.0-45.0); HEMOGLOBIN 12.1 g/dl (12.0-16.0); LYMPHOCYTES # (AUTO) 0.6 X10'3 (1.1-4.8); LYMPHOCYTES % (AUTO) 5.9 % (21-51); MEAN CORPUSCULAR HEMOGLOBIN 26.1 PG (27.0-31.0); MEAN CORPUSCULAR HGB CONC 31.7 g/dL (33.0-36.5); MEAN CORPUSCULAR VOLUME 82.2 FL (78-98); MONOCYTES # (AUTO) 0.5 X10'3 (0-0.9); NEUTROPHILS # (AUTO) 9.4 X10'3 (1.8-7.7); NEUTROPHILS % (AUTO) 87.5 % (42-75); PLATELET COUNT 360 X10'3 (140-440); RED BLOOD COUNT 4.65 X10'6 (4.20-5.60); RED CELL DISTRIBUTION WIDTH 26.7 % (11.5-14.5); WHITE BLOOD COUNT 10.7 X10'3 (4.5-11.0)
[2023-08-05 16:04] LABS: ANISOCYTOSIS 3+; PLATELET ESTIMATE NORMAL
[2023-08-05 16:05] LABS: ELLIPTOCYTES 1+; TEAR DROP CELLS FEW
[2023-08-09 09:24] LABS: IMMUNOGLOBULIN A, QN, SERUM 59 mg/dL (87-352); IMMUNOGLOBULIN G, QN, SERUM 842 mg/dL (586-1602); IMMUNOGLOBULIN M, QN, SERUM 170 mg/dL (26-217)
[2023-08-11 22:19] LABS: IMMUNOGLOBULIN E, TOTAL 122 IU/mL (6-495)
== END | disposition home or self-care (01) ==
LOC: LAB 12:03
PROVIDERS: ATTEND Otolaryngology
DX: J32.0 Chronic maxillary sinusitis (principal); D89.89 Other specified disorders involving the immune mechanism, not elsewhere classified; J01.40 Acute pansinusitis, unspecified; J45.21 Mild intermittent asthma with (acute) exacerbation; K21.00 Gastro-esophageal reflux disease with esophagitis, without bleeding; M06.871 Other specified rheumatoid arthritis, right ankle and foot; D84.9 Immunodeficiency, unspecified
CPT/HCPCS: 36415; 82784; 82785; 85008; 85025

== ENCOUNTER 2024-05-24 08:37 | Outpatient (CLI) | payer MEDICARE, BC | END 2024-05-24 23:59 | disposition home or self-care (01) | LOC: RAD 08:37 | PROVIDERS: ATTEND Physician Assistant | DX: R10.84 Generalized abdominal pain (principal) | CPT/HCPCS: 74150 ==

== ENCOUNTER 2025-03-26 20:45 | Emergency (ER) | payer BC, MEDICARE ==
[~2025-03-26] VITALS: Ht 167.6 cm; Wt 65.0 kg
[~2025-03-26 20:45] MED LIST changes: +ADV50100 INH; -CEVI30CA7 PO; +GABA-1405 PO; +HYDR200T73 PO; -PRE5T PO; +PRED10TA23 PO; +[UNRECOGNIZED DRUG - OTHER] IV
--- NOTE | 2025-03-26 20:57 | ELECTROCARDIOGRAPH REPORT ---
[facility] Test Date: 2025-03-26 Test Time: 20:54:47 Pat Name: JAVIER SU Department: EMERGENCY ROOM Room: Gender: F Graduate Assistant: : 1955 Requested By: JESUS MANUEL GILL Order Number: [id number] Reading MD: Measurements Intervals [place] Rate: 95 P: 23 OH: 106 QRS: 2 QRSD: 80 T: 51 QT: 345 QTc: 434 Interpretive Statements Sinus rhythm Short OH interval Low voltage, precordial leads Please click the below link to view image of tracing.
--- NOTE | 2025-03-26 21:02 | Physician Documentation ---
History of Present Illness ~ Chief Complaint: Mechanical Fall Stated Complaint: FALL ON THINNERS Time Seen by MD: 21:01 Primary Medical Doctor: merly GRAVES Patient presents to the emergency room after slipping on her dog vomits causing her to fall on her right side smacking the right side of her head. No loss of consciousness however patient is on blood thinners and knew she needed to come in after hitting her head. She is declining Tylenol. Tetanus within 5 Years?: No (UNABLE TO ANSWER/CONFUSED) Medication Reconciliation Allergies: Coded Allergies: Penicillins (Verified Adverse Reaction, Unknown, HEADACHE, 04/01/23) topiramate (Verified Adverse Reaction, Unknown, NERVOUS SYSTEM ISSUES, 04/01/23) Uncoded Allergies: AMBIEN AND LUNESTA (Adverse Reaction, Unknown, 03/30/23) Scheduled Apixaban (Eliquis), 1 TAB PO Q12H, (Reported) Atorvastatin Calcium (Atorvastatin Calcium), 1 TAB PO HS, (Reported) Calcium Carbonate (Calcium), 1 TAB PO DAILY, (Reported) Cetirizine HCl (Zyrtec), 1 TAB PO DAILY, (Reported) Cholecalciferol (Vitamin D3) (Vitamin D3), 2 CAP PO DAILY, (Reported) Cyanocobalamin* (Vitamin B-12*), 2 TAB PO DAILY, (Reported) Fluticasone/Salmeterol* (Advair 100-50 Diskus*), 1 PUFFS INH Q12H, (Reported) Gabapentin (Gabapentin), 1 TAB PO TID, (Reported) Hydroxychloroquine Sulfate* (Plaquenil*), 1 TABLET PO DAILY, (Reported) Insulin Glargine,Hum.rec.anlog* (Lantus*), 5 UNITS SQ HS, (Reported) Leflunomide (Leflunomide), 1 TAB PO DAILY, (Reported) Levothyroxine Sodium (Levothyroxine Sodium), 1 TAB PO DAILY, (Reported) Losartan Potassium (Losartan Potassium), 1 TAB PO DAILY, (Reported) Metformin Hcl* (Metformin ER*), 4 TAB PO HS, (Reported) Montelukast Sodium (Montelukast Sodium), 1 TAB PO DAILY, (Reported) Olopatadine HCl (Olopatadine HCl), 1 DROP EACHEYE DAILY, (Reported) Omeprazole (Omeprazole), 1 CAP PO DAILY, (Reported) Potassium Chloride (K-Tab ER), 1 TAB PO BID, (Reported) Prednisone (Prednisone), 1 TAB PO DAILY, (Reported) Valacyclovir HCl (Valacyclovir), 1 TAB PO DAILY, (Reported) [Hirzentra], 50 GM IV TUESDAY, (Reported) Past Medical History Past Medical History: Atrial Fibrillation, High Cholesterol, GERD, UTI, Diabetes, Hypothyroidism, Arthritis, Breast Cancer Past Surgical History: noncontributory Alcohol Use: None Drug Use: none Lives In: Home Occupation: employed Review of Systems ROS All review of systems negative except as per HPI Physical Exam Vital Signs: Temperature: 97.2, Source: Temporal, Heart Rate: 96, Respiratory Rate: 16, BP: 161/100, Pulse Oximetry: 97, Weight: 65.000 Oxygen Flow Rate: 0 Physical Exam General: Patient is awake, alert, oriented x4 in no acute distress and well appearing.~ Head: Normocephalic and atraumatic. Eyes: Conjunctival normal. EOMI. PERRL. ENT: Mucous membranes moist. Negative blank signs negative raccoon eyes negative hemotympanum Neck: Supple, trachea is midline. Positive cervical midline tenderness Chest: Clear to auscultation bilaterally without rales, rhonchi, or wheezes. There is no accessory muscle use or retractions. Cardiac: RRR without murmurs, gallops, or rubs. Extremities: Normal strength. Normal range of motion. No deformities or edema. Mild pain with manipulation of right shoulder. No deformities Progress Results/Orders Results/Orders Orders - VINH SALDIVAR MD Ct Head (03/26/25 20:45) Ct Cervical Spine (03/26/25 20:45) Chest,Single View (03/26/25 21:04) Completed Orders - VINH SALDIVAR MD Electrocardiogram (03/26/25 20:53) Ct Head (03/26/25 20:45) Ct Cervical Spine (03/26/25 20:45) Chest,Single View (03/26/25 21:04) Vital Signs 03/26/25 03/26/25 20:54 21:06 Temp 97.2 Pulse 96 Resp 16 B/P (MAP) 161/100 Pulse Ox 97 O2 Flow Rate 0 EKG/XRAY/CT/US/VASC/MRI EKG : Additional Comment EKG interpreted by myself shows time of 2053, rate 95, sinus rhythm, normal axis, no ST changes Chest X-Ray : Additional Comments One view chest x-ray interpreted by myself is negative for fractures dislocations pneumothorax or infiltrates Medical Decision Making Findings Patient presented to the emergency room after fall on thinners as per HPI. Differentials include but are not limited to epidural bleed, subdural bleed, intraparenchymal bleed, fractures, dislocations therefore emergent imaging indicated. Imaging reassuring. I do not feel patient's shoulder pain represents ACS given HPI. Rice therapy discussed Departure Disposition: HOME / SELF CARE / HOMELESS Impression: Primary Impression: Fall Condition: Stable Discharge Instructions: Fall Prevention in the Home, Adult, [id number]-Ekld Referrals: NO PRIMARY CARE PROVIDER (PCP) Signature Scribe Signature: No scribe Attestation: The note accurately reflects work and decisions made by me.Vinh Saldivar MD 03/26/25 21:54 VINH SALDIVAR MD Mar 26, 2025 21:02
--- NOTE | 2025-03-26 21:48 | RADIOLOGY REPORT ---
EXAM: CT CT CERVICAL SPINE INDICATION: FALL ON THINNERS TECHNIQUE: Non contrast axial images of the cervical spine have been obtained with coronal and sagittal reformatted images. CT scans at this facility use dose modulation, iterative reconstruction, and/or weight based dosing when appropriate to reduce radiation dose to as low as reasonably achievable. COMPARISON: MRI HEAD on DOS: 01/18/23 FINDINGS: ANATOMY: Cervical lordosis is maintained. VERTEBRAL BODIES: The vertebral bodies are normal in height and alignment. The dens is intact, the lateral masses of C1 are normally aligned, and the atlantodental interval is normal for age. SPINAL CANAL: No significant spinal canal stenosis. INTERVERTEBRAL DISCS: No CT findings to suggest traumatic disc herniation or acute hematoma. SOFT TISSUES: There is no prevertebral soft tissue swelling. OTHER: Biapical pleural-parenchymal scarring. Near-complete opacification of the right sphenoid sinus. IMPRESSION: 1. No acute cervical spine fracture or malalignment.
--- NOTE | 2025-03-26 21:48 | RADIOLOGY REPORT ---
EXAM: CT CT HEAD INDICATION: FALL ON THINNERS TECHNIQUE: CT of the head without intravenous contrast. Radiation Dose Information: CT Dose: CTDI volume is 54.71 mGy. Dose-length product is 1059.72 mGy*cm The dose indicators for CT are the volume Computed Tomography (CT) Dose Index (CTDIvol) and the Dose Length Product (DLP), and are measured in units of mGy and mGy-cm, respectively. These indicators are not patient dose, but values generated from the CT scanner acquisition factors. The report includes radiation exposure data for exposures received during this examination. COMPARISON: MRI HEAD on DOS: 01/18/23, CT HEAD on DOS: 01/15/23 FINDINGS: The cerebral parenchyma appears to be normal configuration and attenuation. The ventricles, cisterns, and sulci appear age-appropriate. There is no evidence for acute territorial infarct, hemorrhage, or mass effect. The orbits are normal. Moderate mucosal thickening within the right sphenoid sinus. Paranasal sinuses and mastoid air cells are otherwise clear. The soft tissues and osseous structures appear within normal limits. IMPRESSION: 1. No acute traumatic intracranial abnormality identified.
[2025-03-26 22:02] VITALS: BP 133/88; PULSE 88; RESP 16; TEMP 97.5; O2SAT 95
[2025-03-26] MEDS: ibuprofen tablet 400 MG TABLET PO ONE (22:02)
--- NOTE | 2025-03-26 22:19 | RADIOLOGY REPORT ---
EXAM: DI CHEST,SINGLE VIEW TECHNIQUE: Single frontal chest radiograph CLINICAL HISTORY: right shoulder and side pain COMPARISON: CHEST,SINGLE VIEW on DOS: 01/15/23, CHEST,SINGLE VIEW on DOS: 03/28/20 FINDINGS/IMPRESSION: A loop recorder projects over the left mid thorax. The lungs are clear. The cardiomediastinal silhouette is unremarkable. No pleural effusion or pneumothorax. Unchanged osseous structures.
== END 2025-03-26 22:04 | disposition home or self-care (01) ==
LOC: ER 20:46
DX: M25.512 Pain in left shoulder (principal); R11.10 Vomiting, unspecified; R51.9 Headache, unspecified; E03.9 Hypothyroidism, unspecified; E11.9 Type 2 diabetes mellitus without complications; E78.00 Pure hypercholesterolemia, unspecified; I48.91 Unspecified atrial fibrillation; M19.90 Unspecified osteoarthritis, unspecified site; Z88.0 Allergy status to penicillin; Z79.899 Other long term (current) drug therapy; W18.39XA Other fall on same level, initial encounter; Y93.89 Activity, other specified; Y92.89 Other specified places as the place of occurrence of the external cause; Y99.8 Other external cause status
CPT/HCPCS: 70450; 71045; 72125; 93005; 99284